=== PATIENT | female | born 1975 | race Caucasian/White ===

== ENCOUNTER 2018-01-09 16:23 | Outpatient (CLI) | payer OTHER, MEDICAID | END 2018-01-09 19:46 | disposition home or self-care (01) | LOC: SRD 16:23 | PROVIDERS: ATTEND Internal Medicine | DX: M17.11 Unilateral primary osteoarthritis, right knee (principal); I70.90 Unspecified atherosclerosis | CPT/HCPCS: 73564 ==

== ENCOUNTER 2018-03-08 18:08 | Emergency (ER) | payer OTHER, MEDICAID ==
[~2018-03-08] VITALS: Ht 152.4 cm; Wt 59.9 kg
[2018-03-08 18:08] VITALS: BP_SYST 132
[~2018-03-08 18:08] MED LIST: CAT.1 PO; CYCL-365 PO; FURO-149 PO; HYDR-1115 PO; KETO10TA2 PO; METO-290 PO; NOR10 PO; OXYC-130 PO; PRO40 PO
[2018-03-08] MEDS ORDERED: MORPHINE 4 MG/ML INJ. SYRINGE IVP ONE (19:00)
[2018-03-08 19:24] LABS: BASOPHILS % (AUTO) 0.3 % (0.0-2.0); EOSINOPHILS # (AUTO) 0.5 K/uL (0.0-0.4); EOSINOPHILS % (AUTO) 7.7 % (0.0-4.0); HEMATOCRIT 27.6 % (36-48); HEMOGLOBIN 8.9 g/dL (12.0-16.0); LYMPHOCYTES # (AUTO) 1.1 K/uL (1.0-5.5); LYMPHOCYTES % (AUTO) 18.1 % (20.5-51.5); MEAN CORPUSCULAR HEMOGLOBIN 27 pg (27-31); MEAN CORPUSCULAR HGB CONC 32 % (32-36); MEAN CORPUSCULAR VOLUME 83 fL (79.0-98.0); MONOCYTES # (AUTO) 0.2 K/uL (0.0-1.0); NEUTROPHILS # (AUTO) 4.1 K/uL (1.8-7.7); NEUTROPHILS % (AUTO) 69.9 % (40.0-70.0); PLATELET COUNT (AUTO) 392 K/uL (130-430); RED BLOOD CELL COUNT(AUTO) 3.31 MIL/uL (4.2-6.2); RED CELL DISTRIBUTION WIDTH 17.1 % (9.0-15.0); WHITE BLOOD COUNT (AUTO) 5.9 K/uL (4.8-10.8)
[2018-03-08] MEDS ORDERED: INSULIN NPH/REGULAR 70-30, 100 UNITS/ML, 10 ML VIAL SUBCUT ONE (19:30)
[2018-03-08 19:35] LABS: CALCIUM 9.6 mg/dL (8.4-11.0); CREATININE 4.47 mg/dL (0.55-1.30); POTASSIUM 4.5 mmol/L (3.5-5.1)
[2018-03-08 19:41] LABS: ALBUMIN 2.8 g/dL (3.4-4.8); TOTAL BILIRUBIN 0.5 mg/dL (0.0-1.0)
[2018-03-08 22:06] VITALS: BP_SYST 146
== END 2018-03-08 22:06 | disposition home or self-care (01) ==
LOC: SED 18:08
DX: G62.9 Polyneuropathy, unspecified (principal); E11.9 Type 2 diabetes mellitus without complications; R25.2 Cramp and spasm; I10 Essential (primary) hypertension; Z99.2 Dependence on renal dialysis
CPT/HCPCS: 36415; 80053; 85025; 96372; 96374; 99284; J2270; J1815

== ENCOUNTER 2018-03-24 18:23 | Emergency (ER) | payer OTHER, MEDICAID ==
[~2018-03-24] VITALS: Ht 152.4 cm; Wt 59.9 kg
[2018-03-24 18:23] VITALS: BP_SYST 154
[2018-03-24] MEDS ORDERED: KETOROLAC TROMETHAMINE 15 MG VIAL ONE (19:47)
[2018-03-24] MEDS ORDERED: KETOROLAC TROMETHAMINE 15 MG VIAL IVP ONE (20:00)
[2018-03-24] MEDS ORDERED: MORPHINE 2 MG/ML INJ. SYRINGE IVP ONE (20:45)
[2018-03-24] MEDS ORDERED: MORPHINE 4 MG/ML INJ. SYRINGE ONE (20:50)
[2018-03-24] MEDS ORDERED: traMADol HCL HCL 50 MG TABLET (ULTRAM) PO ONE (22:30)
[2018-03-24 22:37] VITALS: BP_SYST 134
== END 2018-03-24 22:37 | disposition home or self-care (01) ==
LOC: SED 18:23
DX: G62.9 Polyneuropathy, unspecified (principal); I12.0 Hypertensive chronic kidney disease with stage 5 chronic kidney disease or end stage renal disease; E11.22 Type 2 diabetes mellitus with diabetic chronic kidney disease; N18.6 End stage renal disease; Z99.2 Dependence on renal dialysis; Z79.899 Other long term (current) drug therapy
CPT/HCPCS: 93005; 96374; 96375; 99284; J1885; J2270